=== PATIENT | male | born 1970 | race Two or more races ===

== ENCOUNTER 2025-03-08 11:37 | Emergency (ER) | payer OTHER ==
[2025-03-08 11:45] VITALS: BP 139/84; PULSE 76; RESP 20; TEMP 98.2; BMI 26.4
[2025-03-08] MEDS ORDERED: POLYETHYLENE GLYCOL (HEALTHYLAX) 3350 17 GM PACKET ONE (12:44)
[2025-03-08] MEDS: POLYETHYLENE GLYCOL (HEALTHYLAX) 3350 17 GM PACKET PO ONE (12:59)
[2025-03-08] MEDS: MINERAL OIL ENEMA 133 ML ENEMA RC ONE (13:22)
== END 2025-03-08 14:02 | disposition home or self-care (01) ==
LOC: JER 11:37
DX: K59.00 Constipation, unspecified (principal); R10.30 Lower abdominal pain, unspecified
CPT/HCPCS: 99284-25